=== PATIENT | female | born 1990 | race Caucasian/White ===

== ENCOUNTER 2017-11-18 11:42 | Observation (INO) | payer OTHER ==
[~2017-11-18] VITALS: Ht 170.2 cm; Wt 72.6 kg
[~2017-11-18 11:42] MED LIST: IBUPROFEN800 MG PO; MACROBID100 MG PO; PRENATAL1 TA2 PO; ZOFRAN4 M1 PO; ZOFRAN4 M1 SL
--- NOTE | 2017-11-18 12:02 | ED GENERAL ADULT ---
See Addendum History of Present Illness General Chief Complaint: General Adult Stated Complaint: ABNORMAL CT SCAN Source: patient, PCP Exam Limitations: no limitations Vital Signs & Intake/Output Vital Signs & Intake/Output Vital Signs Date Time Temp Pulse Resp B/P B/P Pulse O2 O2 Flow FiO2 Mean Ox Delivery Rate 11/18 1727 100.0 82 18 119/65 97 Room Air 11/18 1152 99.6 90 16 98 Room Air Allergies Coded Allergies: bismuth subsalicylate (Intermediate, HIVES 11/18/17) calcium carbonate (From TUMS) (Intermediate, HIVES 11/18/17) Penicillins (HIVES 11/18/17) amoxicillin (HIVES 11/18/17) diphenhydramine (From BENADRYL) (HIVES 11/18/17) Uncoded Allergies: PINK DYE (Intermediate, UNKNOWN 05/22/15) Reconcile Medications Norgestimate-Ethinyl Estradiol (Ortho Tri-Cyclen Lo Tablet) [id number] LO TABLET 1 TAB PO QPM BC (Reported) Oxycodone HCl/Acetaminophen (Oxycodone-Acetaminophen 5-325) 5 MG-325 MG TABLET 1 TAB PO Q6-PRN PRN PAIN (Reported) Triage Note: 26F WITH LUQ PAIN X1-2 DAYS THAT NOW RADIATES UP BACK AND INTO LEFT CHEST WALL. DENIES PALPITATIONS OR DIFF BREATHING. O2 SAT 98% RA. SIB DR SAN BECAUSE CT SHOWED ?PNA TO LEFT LUNG BUT D-DIMER CAME BACK ELEVATED AT 2,347. TEMP 99.6. EKG COMPLETED AND #18 EST FOR POSSIBLE CTA. DENIES SMOKING, + CONTROL. DENIES RECENT TRAVEL OR LONG CAR RIDES. DENIES SWELLING OR PAIN TO EXTREMITIES Triage Nurses Notes Reviewed? yes Onset: Abrupt Duration: day(s): (2) Timing: no prior history Injury Environment: home Severity: severe Severity Numbers: 6 Modifying Factors: Improves With: immobilization. Worsens With: movement. Associated Symptoms: chest pain : No Patient currently breastfeeds: No HPI: Patient is a 26-year-old female with no medical history on control pills presenting to the emergency department complaining of sudden onset of left upper quadrant abdominal pain that started at 4 AM 2 days ago. Pain is severe if she is moving or palpating the area. Not so severe if she staying still. She's been taking oxycodone with some relief. No history of blood clots. Denies smoking history. No family history of clotting disorders in the family by her mother is adopted. Denies any shortness of breath. She does report that the left upper quadrant pain radiates into the left side of the chest at times. Denies palpitations. Denies drug use. No fevers or chills. Denies any nausea or vomiting. No change in bowel or bladder habits. She does admit to remote history of mononucleosis when she was in fifth grade. Denies any sore throat or upper respiratory congestion or symptoms. (Adriana Green) Past History Travel History Traveled to [place] past 21 day No Medical History Any Pertinent Medical History? 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 Surgical History Surgical History: non-contributory Psychosocial History What is your primary language Danish Tobacco Use: Never used Family History Hx Contributory? No (Adriana Green) Review of Systems Review of Systems Constitutional: Reports: no symptoms. Comments Review of systems: See HPI, All other systems negative. Constitutional, no chills fever or weight loss HEENT: No visual changes no sore throat no congestion Cardiovascular: No palpitation , orthopnea or ankle swelling Skin, no jaundice no rashes Respiratory: No dyspnea cough sputum or hemoptysis GI: No nausea no vomiting : No dysuria No hematuria Muscle skeletal: no back pain, no neck pain, Neurologic: No numbness no confusion NO HEADACHES Psych: No stress anxiety or depression,. Heme/endocrine: No bruising no bleeding no polyuria or polydipsia Immunology: No splenectomy or history of AIDS (Adriana Green) Physical Exam Physical Exam General Appearance: well developed/nourished, no apparent distress, alert, awake , comfortable Comments: Well-developed well-nourished person in no acute distress HEENT: Atraumatic, normocephalic, normal-appearing posterior pharynx, no enlarged tonsils visualized, uvula midline. Clearing secretions without difficulty. Neck: Normal inspection, no palpable cervical lymphadenopathy. Back: Positive left CVA tenderness on exam. Cardiovascular: Regular rate and rhythms no murmurs rubs or gallops, normal JVP Respiratory: Chest nontender. No respiratory distress.breath sounds clear to auscultation bilaterally Abdomen: Soft, tenderness to palpation in the left upper quadrant with guarding, no rebound tenderness, nondistended, no appreciable organomegaly. Normal bowel sounds. No ascites Rectal: Nontender, brown stool guaiac negative. Extremity: No edema, no calf tenderness to palpation, normal and equal pulses. Neuro: Alert oriented x3, Skin: No appreciable rash on exposed skin, skin is warm and dry. No visualized rashes over the left flank. Psych: Mood and affect is normal, memory and judgment is normal. Core Measures ACS in differential dx? Yes CVA/TIA Diagnosis: No Sepsis Present: No Sepsis Focused Exam Completed? No (Robert SANCHEZ,Adriana) Progress Differential Diagnoses I considered the following diagnoses in my evaluation of the patient: Pulmonary embolus, pneumonia, mononucleosis, viral syndrome, pneumothorax him a muscle strain, shingles Plan of Care: Orders Procedure Date/time Status CBC WITHOUT DIFFERENTIAL 11/19 0600 Active BASIC ELECTROLYTES PLUS BUN&CR 11/19 0600 Active Regular Diet 11/18 D Active PARTIAL THROMBOPLASTIN TIME 11/[address] in observation 11/18 1545 Active Saline Lock 11/18 1532 Active Pathway - chart 11/18 1532 Active House Staff 11/18 1532 Active Code Status 11/18 1532 Active Patient Data 11/18 1452 Active ED Holding Orders 11/18 1450 Active Vital Signs 11/18 1450 Active Code Status 11/18 1450 Complete Intake & Output 11/18 1202 Active MONOSPOT TEST 11/18 1159 Complete TROPONIN LEVEL 11/18 1158 Complete PROTHROMBIN TIME 11/18 1158 Complete HUMAN BETA HCG SCREEN 11/18 1158 Complete D-DIMER 11/18 1158 Complete COMPREHENSIVE METABOLIC PANEL 11/18 1158 Complete CBC WITHOUT DIFFERENTIAL 11/18 1158 Complete EKG 11/18 1151 Active VTE Mechanical Prophylaxis 11/18 UNK Active Vital Signs 11/18 UNK Active Intake & Output 11/18 UNK Active ECHOCARDIOGRAM 11/18 UNK Active Current Medications Sig/Edith Start time Last Medication Dose Stop Time Status Admin Enoxaparin Sodium 100 MG DAILY@1600 11/18 1616 AC 11/18 (Lovenox) 1700 Acetaminophen 650 MG Q6P PRN 11/18 1530 AC (Tylenol) Oxycodone HCl 5 MG Q8P PRN 11/18 1530 AC (Roxicodone) Oxycodone/ 2 TAB Q6P PRN 11/18 1530 AC Acetaminophen (Percocet) Laboratory Tests 11/18/17 1643: APTT > 120 *H 11/18/17 1200: Anion Gap 9, Estimated GFR > 60, BUN/Creatinine Ratio 17.1, Glucose 106 H, Calcium 9.2, Total Bilirubin 0.4, AST 24, ALT 41, Alkaline Phosphatase 78, Troponin I < 0.01, Total Protein 6.7, Albumin 3.8, Globulin 2.9, Albumin/ Globulin Ratio 1.3, Total Beta HCG NEGATIVE, PT 11.4, INR 1.09, D-Dimer High Sensitivty 2924 H, CBC w Diff NO MAN DIFF REQ, RBC 4.21, MCV 84.9, MCH 29.0, RDW 14.4, MPV 8.3, Gran % 51.1, Lymphocytes % 39.3, Monocytes % 8.7, Eosinophils % 0.7, Basophils % 0.2, Absolute Granulocytes 4.1, Absolute Lymphocytes 3.1, Absolute Monocytes 0.7 H, Absolute Eosinophils 0.1, Absolute Basophils 0, PUBS MCHC 34.1, Infectious Breathitt Titer POSITIVE 11/18/2017 12:46:33 PMOn arrival patient declined pain medication. Patient will for CTA due to recent elevated d-dimer and left-sided chest pain. Patient does take daily control. Pain on exam. Vitals are stable. 11/18/2017 2:46:40 PM patient informed of CT results revealing bilateral pulmonary embolus. Patient will be treated with heparin. Admitted for treatment of pulmonary embolus. Guaiac-negative. Patient medicated with IV morphine for pain. Negative troponin. No signs of heart strain on the CTA. Discussed Sandy Bhatia MD, she agrees to plan. Diagnostic Imaging: Viewed by Me: CT Scan. Discussed w/RAD: CT Scan. Initial ED EKG: NSR (Adriana Green) Departure Departure Time of Disposition: 1439 Disposition: STILL A PATIENT Condition: Stable Clinical Impression Primary Impression: Pulmonary embolus Qualifiers: Pulmonary embolism type: other Chronicity: acute Acute cor pulmonale presence: without acute cor pulmonale Qualified Code: I26.99 - Other pulmonary embolism without acute cor pulmonale Referrals: Marie San DO (PCP/Family) Departure Forms: Customer Survey General Discharge Information Admission Note Spoke With: Delores Gregory MD Documentation of Exam: Documentation of any treatments & extenuating circumstances including Concerns Regarding Discharge (functional status, medication knowledge or non-compliance, living conditions, etc.) that warrant an admission rather than observation: Patient will require IV heparinization for bilateral pulmonary embolus, pulmonology and hematology consultation, medication management, discharge at this time would be medically harmful as patient can throW A clot causing a stroke. (Adriana Green) Departure Time of Disposition: 1450 Admission Note Documentation of Exam: Documentation of any treatments & extenuating circumstances including Concerns Regarding Discharge (functional status, medication knowledge or non-compliance, living conditions, etc.) that warrant an admission rather than observation: Observation Note Spoke With: Delores Gregory MD Physician Advisor Notified: TAMMI DUNCAN,TOR [facility] Patient In: Non-ED OBS Care Area Rationale for Observation: My rational for observation is as follows [ Patient will require IV heparinization for bilateral pulmonary embolus, pulmonology and hematology consultation, medication management, discharge at this time would be medically harmful as patient can throW A clot causing a stroke. ]. PA/IT OPERATIONS SPECIALIST Co-Sign Statement Statement: ED Attending supervision documentation- [X] I saw and evaluated the patient. I have also reviewed all the pertinent lab results and diagnostic results. I agree with the findings and the plan of care as documented in the PA's/IT OPERATIONS SPECIALIST's documentation. [X] I have reviewed the ED Record and agree with the PA's/IT OPERATIONS SPECIALIST's documentation. [] Additions or exceptions (if any) to the PAs/IT OPERATIONS SPECIALIST's note and plan are summarized below: [] (Sandy Bhatia MD) Critical Care Note Critical Care Note Critical Care Time: 30-74 min (Adriana Green)
[2017-11-18] MEDS ORDERED: ORTHO TRI-CYCL1 EAC1 PO (12:08)
[2017-11-18] MEDS ORDERED: OXYCODONE-ACET1 EACH PO (12:08)
[2017-11-18 12:26] LABS: ABSOLUTE BASOPHIL COUNT 0 /CUMM (0.0-0.2); ABSOLUTE EOSINOPHIL COUNT 0.1 /CUMM (0.0-0.7); ABSOLUTE GRANULOCYTE CT 4.1 /CUMM (1.4-6.5); ABSOLUTE LYMPH COUNT 3.1 /CUMM (1.2-3.4); ABSOLUTE MONOCYTE COUNT 0.7 /CUMM (0.10-0.60); BASOPHIL % 0.2 % (0.0-2.0); EOSINOPHIL % 0.7 % (0-5); GRANULOCYTE % 51.1 % (42.2-75.2); HEMATOCRIT 35.7 % (37-47); MEAN CORPUSCULAR HGB CONC 34.1 G/DL (33.0-37.0); MEAN CORPUSCULAR VOLUME 84.9 FL (81.0-99.0); MEAN PLATELET VOLUME 8.3 FL (7.4-10.4); PLATELET COUNT 225 /CUMM (130-400); PT 11.4 SEC (9.4-12.5); RBC DISTRIBUTION WIDTH 14.4 % (11.5-14.5); RED BLOOD CELL CT 4.21 /CUMM (4.20-5.40)
--- NOTE | 2017-11-18 14:20 | CT SCAN REPORT ---
EXAMINATION: CT ANGIOGRAM OF THE CHEST WITH CONTRAST (CT PULMONARY ANGIOGRAM FOR PE) CLINICAL INFORMATION: Left-sided chest/rib pain. Evaluate for pulmonary embolism. COMPARISON: Abdomen CT from 11/18/2017. TECHNIQUE: Prior to contrast administration, noncontrast localization images were obtained. Subsequently, multidetector volumetric imaging was performed from the thoracic inlet to below the diaphragms following the administration of 80 mL Optiray 350 intravenous contrast. No contrast reaction reported. Sagittal, coronal, and MIP oblique sagittal reformatted images were obtained on the CT workstation, uploaded to PACS, and reviewed. Total exam dose-length product 251 mGy-cm FINDINGS: QUALITY OF STUDY/CONTRAST BOLUS: Satisfactory. PULMONARY ARTERIES: Pulmonary arteries are normal in size. Nonocclusive embolism of the right pulmonary artery extends into the proximal branches to the medial and lateral segments of the middle lobe, into the interlobar artery and into the segmental branches of the right lower lobe. An embolism of the left lower lobe pulmonary artery extends into the segmental branches. THORACIC AORTA: Normal. LUNGS AND PLEURA: Trachea and central airways are widely patent and normal in caliber. There is mild patchy groundglass opacity in the posteromedial left lower lobe. This could represent minimal peripheral hemorrhage, inflammation and/or atelectasis in this patient with emboli to the left lower lobe. MEDIASTINUM: The heart size is normal. No pericardial effusion. No evidence of septal bowing or right heart strain. The esophagus is unremarkable. The visualized portion of the thyroid gland is normal. LYMPHATICS: No axillary or internal mammary lymphadenopathy. No pathologic sized mediastinal or hilar lymph nodes. UPPER ABDOMEN: For abdominal findings, please refer to the abdomen and pelvis CT report from 11/18/2017. Again noted is an enlarged spleen and posterior splenic cysts. Adrenal glands are normal. No reflux of contrast into the hepatic veins to suggest elevated right heart pressures. OSSEOUS STRUCTURES: No acute or suspicious osseous abnormality. IMPRESSION: Acute bilateral pulmonary emboli, as noted above, without evidence of heart strain. The critical test result was discussed with Adriana Jones of the Emergency Room at 2:15 PM on 11/18/2017 and it was ascertained that the content and the importance of the findings was understood at the time of the direct communication.
--- NOTE | 2017-11-18 15:40 | History & Physical ---
Giovanny Soares 11/18/17 1540: General Information and HPI MD Statement: I have seen and personally examined MAEVE MCARTHUR and documented this H&P. The patient is a 26 year old F who presented with a patient stated chief complaint of [ABD pain]. Source of Information: patient, old records Exam Limitations: no limitations History of Present Illness: This is a 26-year-old female past medical history of left renal stone nonobstructive, history of breast tissue removal consistent with benign cystic fibrous tissue, on oral contraceptive pill otherwise he is not on any prescribed medication. Patient stated that in the middle the night she started to experience left side abdominal pain, start sudden, sharp, 10 out of 10 severity, radiating to her anterior shoulder, increased with movement, not associated with any other symptoms due to this symptom patient went to her primary care doctor who sent her to the hospital to get abdomen and pelvis CT scan to rule out any renal stone, due to the finding of small area of patchy ground glass opacity questionable pneumonia was a concern also the CAT scan showed mild splenomegaly with associated splenic cyst. Patient had elevated d-dimer and because of that CTA was ordered to rule out any pulmonary embolism, the CTA came back with bilateral none occlusive PE. The patient is denying any shortness of breath, heart racing, fever, chills, cough, sick contact, nausea, vomiting, diarrhea, constipation, headache, hematuria, dysuria, increased frequency, recent travel, history of malignancy, history of blood coagulopathy, lower extremity edema, tenderness or redness. Patient reports she pass left nonobstructive renal stone 4 weeks ago, she states she was on Percocet for that and she was following with her OR RN. The ED patient was started on heparin drip. Allergies/Medications Allergies: Coded Allergies: bismuth subsalicylate (Intermediate, HIVES 11/18/17) calcium carbonate (From TUMS) (Intermediate, HIVES 11/18/17) Penicillins (HIVES 11/18/17) amoxicillin (HIVES 11/18/17) diphenhydramine (From BENADRYL) (HIVES 11/18/17) Uncoded Allergies: PINK DYE (Intermediate, UNKNOWN 05/22/15) Home Med list Norgestimate-Ethinyl Estradiol (Ortho Tri-Cyclen Lo Tablet) [id number] LO TABLET 1 TAB PO QPM BC (Reported) Oxycodone HCl/Acetaminophen (Oxycodone-Acetaminophen 5-325) 5 MG-325 MG TABLET 1 TAB PO Q6-PRN PRN PAIN (Reported) Past History Travel History Traveled to [place] past 21 day No Medical History Neurological: NONE EENT: tonsil infections Cardiovascular: NONE Respiratory: bronchitis Gastrointestinal: GERD Hepatic: NONE Renal: NONE Musculoskeletal: NONE Psychiatric: NONE Endocrine: NONE Blood Disorders: NONE Cancer(s): NONE HOME CARE ASSISTANT/Reproductive: 25 WEEK iup BY ULTRASOUND FROM 2 DAYS AGO. Surgical History Surgical History: non-contributory Past Family/Social History Family History Relations & Conditions if any MOTHER Psychosocial History Smoking Status: Never Smoked ETOH Use: occasional use Illicit Drug Use: denies illicit drug use Functional Ability ADLs Independent: dressing, eating, toileting, bathing. Ambulation: independent IADLs Independent: shopping, housework, finances, food prep, telephone, transportation , medication admin. Review of Systems Review of Systems Constitutional: Reports: see HPI. Cardiovascular: Reports: see HPI. Respiratory: Reports: see HPI. GI: Reports: see HPI. Genitourinary: Reports: see HPI. Exam & Diagnostic Data Last 24 Hrs of Vital Signs/I&O Vital Signs Date Time Temp Pulse Resp B/P B/P Pulse O2 O2 Flow FiO2 Mean Ox Delivery Rate 11/18 1152 99.6 90 16 98 Room Air Intake & Output 11/18 1600 11/18 0800 11/18 0000 Intake Total Output Total Balance Patient 160 lb Weight Weight Reported by Patient Measurement Method Physical Exam General Appearance Alert, Oriented X3, Cooperative, No Acute Distress Skin Temp/Moisture Exam: Warm/Dry HEENT Atraumatic, PERRLA, EOMI Neck Supple Cardiovascular Regular Rate, Normal S1, Normal S2 Lungs Clear to Auscultation, Normal Air Movement Abdomen Normal Bowel Sounds, Soft, mild tenderness left upper quadrant Extremities No Cyanosis, No Edema, Normal Pulses Last 24 Hrs of Labs/Ollie: Laboratory Tests 11/18/17 1643: APTT Pending 11/18/17 1200: Anion Gap 9, Estimated GFR > 60, BUN/Creatinine Ratio 17.1, Glucose 106 H, Calcium 9.2, Total Bilirubin 0.4, AST 24, ALT 41, Alkaline Phosphatase 78, Troponin I < 0.01, Total Protein 6.7, Albumin 3.8, Globulin 2.9, Albumin/ Globulin Ratio 1.3, Total Beta HCG NEGATIVE, PT 11.4, INR 1.09, D-Dimer High Sensitivty 2924 H, CBC w Diff NO MAN DIFF REQ, RBC 4.21, MCV 84.9, MCH 29.0, RDW 14.4, MPV 8.3, Gran % 51.1, Lymphocytes % 39.3, Monocytes % 8.7, Eosinophils % 0.7, Basophils % 0.2, Absolute Granulocytes 4.1, Absolute Lymphocytes 3.1, Absolute Monocytes 0.7 H, Absolute Eosinophils 0.1, Absolute Basophils 0, PUBS MCHC 34.1, Infectious [place] Titer POSITIVE Diagnostic Data EKG Results Normal CXR Results EXAM TYPE: CAT - CTA CHEST-PULMONARY EMBOLISM EXAMINATION: CT ANGIOGRAM OF THE CHEST WITH CONTRAST (CT PULMONARY ANGIOGRAM FOR PE) CLINICAL INFORMATION: Left-sided chest/rib pain. Evaluate for pulmonary embolism. COMPARISON: Abdomen CT from 11/18/2017. TECHNIQUE: Prior to contrast administration, noncontrast localization images were obtained. Subsequently, multidetector volumetric imaging was performed from the thoracic inlet to below the diaphragms following the administration of 80 mL Optiray 350 intravenous contrast. No contrast reaction reported. Sagittal, coronal, and MIP oblique sagittal reformatted images were obtained on the CT workstation, uploaded to PACS, and reviewed. Total exam dose-length product 251 mGy-cm FINDINGS: QUALITY OF STUDY/CONTRAST BOLUS: Satisfactory. PULMONARY ARTERIES: Pulmonary arteries are normal in size. Nonocclusive embolism of the right pulmonary artery extends into the proximal branches to the medial and lateral segments of the middle lobe, into the interlobar artery and into the segmental branches of the right lower lobe. An embolism of the left lower lobe pulmonary artery extends into the segmental branches. THORACIC AORTA: Normal. LUNGS AND PLEURA: Trachea and central airways are widely patent and normal in caliber. There is mild patchy groundglass opacity in the posteromedial left lower lobe. This could represent minimal peripheral hemorrhage, inflammation and/or atelectasis in this patient with emboli to the left lower lobe. MEDIASTINUM: The heart size is normal. No pericardial effusion. No evidence of septal bowing or right heart strain. The esophagus is unremarkable. The visualized portion of the thyroid gland is normal. LYMPHATICS: No axillary or internal mammary lymphadenopathy. No pathologic sized mediastinal or hilar lymph nodes. UPPER ABDOMEN: For abdominal findings, please refer to the abdomen and pelvis CT report from 11/18/2017. Again noted is an enlarged spleen and posterior splenic cysts. Adrenal glands are normal. No reflux of contrast into the hepatic veins to suggest elevated right heart pressures. OSSEOUS STRUCTURES: No acute or suspicious osseous abnormality. IMPRESSION: Acute bilateral pulmonary emboli, as noted above, without evidence of heart strain. EXAMINATION: CT ABDOMEN AND PELVIS WITH CONTRAST CLINICAL INFORMATION: Severe pain in left upper quadrant. COMPARISON: None TECHNIQUE: Multidetector volumetric imaging was performed of the abdomen and pelvis following IV administration of 93 mL of Optiray 320 intravenous contrast. Sagittal and coronal reformatted images were obtained on the technologist's workstation. DLP: 745 mGy-cm FINDINGS: LUNG BASES: Within the periphery of the posterior medial left lower lobe, there is an area of patchy groundglass opacity; this is nonspecific and could represent pneumonia or mild atelectasis. No pleural effusion. LIVER, GALLBLADDER, AND BILIARY TREE: Liver has normal contour and attenuation. No focal hepatic lesion or intrahepatic bile duct dilatation. The portal and hepatic veins are patent. Gallbladder is unremarkable. PANCREAS: Unremarkable. SPLEEN: Prominent spleen measures up to 13.6 cm AP and 11.5 cm craniocaudal. There is a 2.5 x 3.2 cm cyst of the posterior spleen with an adjacent 0.5 cm rim calcified cyst. Otherwise, spleen is unremarkable. ADRENAL GLANDS: Unremarkable. KIDNEYS AND URETERS: The kidneys are normal in size, shape, and attenuation. No hydronephrosis, hydroureter, or calculi seen. No perinephric stranding. BLADDER: Unremarkable. GASTROINTESTINAL TRACT: Stomach is underdistended. Bowel loops are normal in caliber. No evidence of inflammation or obstruction along the gastrointestinal tract. No ascites or pneumoperitoneum. ABDOMINAL WALL: No significant findings. LYMPH NODES: Normal. VASCULAR: Abdominal aorta is normal in caliber and the celiac trunk, SMA, SOHA and renal arteries are widely patent. Inferior vena cava is normal. PELVIC VISCERA: The anteflexed uterus is normal in size. No evidence of uterine or adnexal mass. Small, physiologic amount of free fluid is seen within the pelvic cul-de-sac. OSSEOUS STRUCTURES: Unremarkable. IMPRESSION: 1. Within the posteromedial left lower lobe, there is a small area of patchy ground glass opacity; this could represent pneumonia, if in the right clinical context. 2. Mild splenomegaly and posterior splenic cysts. 3. No acute findings along the gastrointestinal tract. Assessment/Plan Assessment: This is a 26-year-old female past medical history of left renal stone nonobstructive, history of breast tissue removal consistent with benign cystic fibrous tissue, on oral contraceptive pill otherwise he is not on any prescribed medication. Presented with abdominal pain. Assessment: -Bilateral pulmonary PE: Provoked versus unprovoked. It most likely on the unprovoked PE, least likely to be secondary to oral contraceptive pill as she is not currently a smoker and she been using his oral contraceptive pill in the past. She will need hypercoagulable workup and hematology follow up as an outpatient. -Abdominal pain: Most likely secondary to the mild splenomegaly and a splenic cyst, the patient has positive Monospot, for now she doesn't need any treatment. No for renal stone on the CT Abd/pelvic. Plan: -Admit patient to telemetry floor -Vitals every shift -Patient was started on heparin drip, will change to Lovenox subcutaneous 100 mg daily -Echocardiogram to assess for right heart strain. -Bilateral lower extremity Doppler to rule out any DVT -Discussed with the patient regarding the choice of the new oral anticoagulation Xarelto versus Eliquis. -Regular diet -Pain pathway -DVT prophylaxis: on Lovenox -Full code As Ranked By This Provider Problem List: 1. Pulmonary embolus Qualifiers Pulmonary embolism type: other Chronicity: acute Acute cor pulmonale presence: without acute cor pulmonale Qualified Code: I26.99 - Other pulmonary embolism without acute cor pulmonale Core Measures/Misc (08/17) Acute Coronary Syndrome ACS Diagnosis: No Congestive Heart Failure Congestive Heart Failure Diagnosis No Cerebrovascular Accident CVA/TIA Diagnosis: No VTE (View Protocol) VTE Risk Factors Acute Medical Illness No Mechanical VTE Prophylaxis d/t N/A MechProphylax Ordered No VTE Pharm Prophylaxis d/t NA PharmProphylax ordered Sepsis (View protocol) Sepsis Present: No Deloers Gregory MD 11/19/17 0951: Attending MD Review Statement Attending Statement Attending MD Statement: examined this patient, discuss w/resident/PA/RECRUITING SPECIALIST, agreed w/resident/PA/RECRUITING SPECIALIST, reviewed EMR data (avail) Attending Assessment/Plan: 26F no PMH on OCPs presenting with shortness of breath and pleuritic chest pain, found to have bilateral acute PE. Started on Lovenox. Pain is controlled, not hypoxic, hemodynamically stable. Found to have mild splenomegaly on CT, Monospot was positive, for what that's worth. Plan: Will bring in as obserbation, Echo, Lovenox with plan to switch to Eliquis, likely discharge tomorrow.
--- NOTE | 2017-11-18 17:52 | ULTRASOUND REPORT ---
EXAMINATION: US TRIPLEX OF LOWER EXTREMITIES, BILATERAL CLINICAL INFORMATION: Acute bilateral PTE. COMPARISON: None available. TECHNIQUE: Color-flow triplex imaging with spectral analysis and compression Doppler were performed on the lower extremities. FINDINGS: Respiratory variation, normal compression and augmented flow are noted throughout the lower extremities. The visualized common femoral vein, superficial femoral vein, profunda femoral vein, popliteal vein and midcalf peroneal and posterior tibial venous segments show no evidence of deep venous thrombosis. There is no Stratton's cyst. IMPRESSION: Normal triplex scan without evidence of deep venous thrombosis involving the lower extremities.
[2017-11-18 18:03] LABS: PTT > 120 SEC (25-37)
[2017-11-18 22:33] VITALS: BP 102/62
[2017-11-19 07:36] VITALS: BP 102/58
[2017-11-19 08:02] LABS: ABSOLUTE BASOPHIL COUNT 0 /CUMM (0.0-0.2); ABSOLUTE EOSINOPHIL COUNT 0.1 /CUMM (0.0-0.7); ABSOLUTE GRANULOCYTE CT 2.8 /CUMM (1.4-6.5); ABSOLUTE LYMPH COUNT 2.6 /CUMM (1.2-3.4); ABSOLUTE MONOCYTE COUNT 0.6 /CUMM (0.10-0.60); BASOPHIL % 0.3 % (0.0-2.0); EOSINOPHIL % 1.5 % (0-5); GRANULOCYTE % 45.8 % (42.2-75.2); HEMATOCRIT 33.5 % (37-47); MEAN CORPUSCULAR HGB 28.8 PG (27.0-31.0); MEAN CORPUSCULAR VOLUME 84.7 FL (81.0-99.0); MEAN PLATELET VOLUME 8.2 FL (7.4-10.4); PLATELET COUNT 185 /CUMM (130-400); RBC DISTRIBUTION WIDTH 14.7 % (11.5-14.5); RED BLOOD CELL CT 3.95 /CUMM (4.20-5.40); WHITE BLOOD CELL COUNT 6.1 /CUMM (4.8-10.8)
--- NOTE | 2017-11-19 11:07 | PN-Observation ---
Observation Note Observation Note _ I have personally examined MAEVE MCARTHUR. her disposition is uncertain at this time. Before a determination can be made, she requires continued observation for the following reasons [pulmonary embolism]. Assessment/Plan Assessment: This is a 26-year-old female past medical history of left renal stone nonobstructive, history of breast tissue removal consistent with benign cystic fibrous tissue, on oral contraceptive pill otherwise he is not on any prescribed medication. Presented with abdominal pain. -Bilateral pulmonary PE: likely 2/2 to oral contraceptive pill * Continue observation on telemetry floor * CTA positive for b/l nonocclusive PE * No DVT, ECHO WNL * Initially was started on IV heparin drip now switched to 80 mg BID * Considering switching to oral anticoagulant Xarelto versus Eliquis. 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 No renal stone on the CT Abd/pelvic. * Pain pathway tylenol 650mg mild pain, percocet moderate and roxicodone for severe #Regular diet #DVT prophylaxis: on Lovenox #Full code Problem List: 1. Pulmonary embolus Qualifiers Pulmonary embolism type: other Chronicity: acute Acute cor pulmonale presence: without acute cor pulmonale Qualified Code: I26.99 - Other pulmonary embolism without acute cor pulmonale Subjective Follow-up For: PE Spleenomegly Subjective: Seen and examined. Complains of nausea likely 2/2 to opoid pain medications. 10/ 10 sharp left sided flank pain Review of Systems Constitutional: Reports: see HPI. Objective Last 24 Hrs of Vital Signs/I&O Vital Signs Date Time Temp Pulse Resp B/P B/P Pulse O2 O2 Flow FiO2 Mean Ox Delivery Rate 11/19 1402 98.9 87 20 90/60 98 Room Air 11/19 0900 Room Air 11/19 0736 98.4 82 20 102/58 97 Room Air 11/18 2233 99.2 89 20 102/62 97 Room Air 11/18 2103 98.9 98 20 121/65 100 Room Air 11/18 1727 100.0 82 18 119/65 97 Room Air 11/18 1553 Room Air Intake & Output 12/20 1600 11/19 0800 11/19 0000 Intake Total Output Total Balance Patient 160 lb Weight Physical Exam General Appearance: Alert, Oriented X3 Other Physical Findings: Cardiovascular Regular Rate, Normal S1, Normal S2 Lungs Clear to Auscultation, Normal Air Movement Abdomen Normal Bowel Sounds, Soft, mild tenderness left upper quadrant Extremities No Cyanosis, No Edema, Normal Pulses Current Medications: Current Medications Sig/Edith Start time Last Medication Dose Route Stop Time Status Admin Acetaminophen 1,000 MG ONCE ONE 11/19 1000 DC 11/19 N/A 1 UNIT IV 11/19 1014 1413 Acetaminophen 650 MG Q6P PRN 11/18 1530 AC PO Enoxaparin Sodium 80 MG BID 11/19 1002 AC 11/19 SC 1416 Enoxaparin Sodium 100 MG DAILY@1600 11/18 1616 DC 11/18 SC 1700 Heparin Sodium 0 .STK-MED ONE 11/18 1448 DC (Porcine) .ROUTE Heparin Sodium 25,000 UNIT Q24H 11/18 1430 DC 11/18 (Porcine) IV 1447 Sodium Chloride 500 ML Hydromorphone HCl 0.2 MG ONCE ONE 11/18 2230 DC 11/18 IV 11/18 2231 2253 Hydromorphone HCl 0 .STK-MED ONE 11/18 1604 DC .ROUTE Hydromorphone HCl 1 MG ONCE ONE 11/18 1530 DC 11/18 IV 11/18 1531 1600 Ondansetron HCl 4 MG ONCE ONE 11/19 0945 DC 11/19 PO 11/19 0946 1413 Oxycodone HCl 5 MG Q8P PRN 11/18 1530 AC PO Oxycodone/ 0 .STK-MED ONE 11/18 1927 DC Acetaminophen PO Oxycodone/ 2 TAB Q6P PRN 11/18 1530 AC 11/19 Acetaminophen PO 1016 Last 24 Hrs of Labs/Mics: Laboratory Tests 11/19/17 1115: Urine Color TEO, Urine Clarity CLEAR, Urine pH 6.0, Ur Specific [place] 1.020, Urine Protein NEG, Urine Ketones NEG, Urine Nitrite NEG, Urine Bilirubin NEG, Urine Urobilinogen 1.0, Ur Leukocyte Esterase NEG, Ur Microscopic SEDIMENT EXAMINED, Urine RBC 1-3, Urine WBC 1-3 H, Ur Epithelial Cells FEW, Urine Bacteria FEW H, Urine Hemoglobin SMALL H, Urine Glucose NEG 11/19/17 0714: Anion Gap 8, Estimated GFR > 60, BUN/Creatinine Ratio 12.9, CBC w Diff NO MAN DIFF REQ, RBC 3.95 L, MCV 84.7, MCH 28.8, RDW 14.7 H, MPV 8.2, Gran % 45.8, Lymphocytes % 42.9, Monocytes % 9.5 H, Eosinophils % 1.5, Basophils % 0.3, Absolute Granulocytes 2.8, Absolute Lymphocytes 2.6, Absolute Monocytes 0.6, Absolute Eosinophils 0.1, Absolute Basophils 0, PUBS MCHC 34.0 11/18/17 1643: APTT > 120 *H
--- NOTE | 2017-11-19 11:47 | ECHOCARDIOGRAM REPORT ---
MAEVE MCARTHUR Age: 26 : 1990 Gender: F Exam Date: 11/19/2017 09:06 Exam Location: 1 [address] Ht (in): 67 Wt (lb): 160 BSA: 1.86 BP: 102 / 58 Ordering Physician: Giovanny Soares MD Referring Physician: Giovanny Soares MD Technologist: Saravanan Strodu [facility] Room Number: 174-1 Indications: ACUTE PULMONARY EMBOLISM Rhythm: Technical Quality: suboptimal, contrast used FINDINGS Left Ventricle Normal LV chamber size, wall thickness and systolic function. The estimated LVEF is 55-60%. There are no focal wall motion abnormalities. Right Ventricle Normal right ventricular size, structure and function. Right Atrium Normal appearing right atrium Left Atrium Normal appearing left atrium Mitral Valve Grossly normal appearing mitral valvular leaflets, structure and function. There is trace to mild mitral regurgitation. Aortic Valve Normal appearing, trileaflet aortic valve with normal structure and function Tricuspid Valve Normal appearing tricuspid valvular structure and function. There is trace to mild tricuspid regurgitation. Pulmonic Valve Grossly normal appearing pulmonic valvular leaflet structure and function Pericardium There is no pericardial effusion Great Vessels Normal appearing great vessels CONCLUSIONS Normal LV chamber size, wall thickness and systolic function. The estimated LVEF is 55-60%. There are no focal wall motion abnormalities. Normal right ventricular size, structure and function. Grossly normal appearing mitral valvular leaflets, structure and function. There is trace to mild mitral regurgitation. Normal appearing tricuspid valvular structure and function. There is trace to mild tricuspid regurgitation. Ramesh Ellington M.D. (Electronically Signed) Final Date: 19 November 2017 11:46 MEASUREMENTS (Male / Female) Normal Values 2D ECHO LV Diastolic Diameter PLAX 4.7 cm 4.2 - 5.9 / 3.9 - 5.3 cm LV Systolic Diameter PLAX 2.9 cm 2.1 - 4.0 cm LV Fractional Shortening PLAX 38.3 % 25 - 46 % LV Ejection Fraction 2D Teich 68.5 % IVS Diastolic Thickness 1.0 cm LVPW Diastolic Thickness 0.9 cm LV Relative Wall Thickness 0.4 LVOT Diameter 1.9 cm Aortic Root Diameter 2.7 cm LA Systolic Diameter LX 2.7 cm 3.0 - 4.0 / 2.7 - 3.8 cm LA Volume 34.0 cm 18 - 58 / 22 - 52 cm Ascending Aorta Diameter 2.4 cm DOPPLER AV Peak Velocity 124.0 cm/s AV Peak Gradient 6.2 mmHg AV Mean Velocity 85.8 cm/s AV Mean Gradient 3.0 mmHg AV Velocity Time Integral 26.8 cm LVOT Peak Velocity 113.0 cm/s LVOT Peak Gradient 5.1 mmHg LVOT Mean Velocity 74.6 cm/s LVOT Mean Gradient 3.0 mmHg LVOT Velocity Time Integral 22.3 cm LVOT Stroke Volume 63.2 cm AV Area Cont Eq vti 2.4 cm AV Area Cont Eq pk 2.6 cm MV Peak Velocity 103.0 cm/s MV Peak Gradient 4.2 mmHg MV Mean Velocity 56.4 cm/s MV Mean Gradient 1.0 mmHg Mitral E Point Velocity 105.0 cm/s Mitral A Point Velocity 45.9 cm/s Mitral E to A Ratio 2.3 MV PHT Velocity 106.0 cm/s MV Deceleration [place] 227.0 cm/s MV Pressure Half Time 140.1 ms MV Area PHT 1.6 cm MV Deceleration Time 271.0 ms PV Peak Velocity 68.9 cm/s PV Peak Gradient 1.9 mmHg PV Mean Velocity 51.8 cm/s PV Mean Gradient 1.0 mmHg PV Velocity Time Integral 16.8 cm LV E' Lateral Velocity 19.1 cm/s Mitral E to LV E' Lateral Ratio 5.5 LV E' Septal Velocity 13.5 cm/s Mitral E to LV E' Septal Ratio 7.8
[2017-11-19 14:02] VITALS: BP 90/60
--- NOTE | 2017-11-19 14:17 | PN- Att Addend ---
Attending MD Review Statement Attending Statement Attending MD Statement: examined this patient, discuss w/resident/PA/[employer], agreed w/resident/PA/[employer], reviewed EMR data (avail), discussed w/nursing, discussed w/ case mgmt Attending Assessment/Plan: Laboratory Tests 11/19/17 1115: Urine Color TEO, Urine Clarity CLEAR, Urine pH 6.0, Ur Specific [place] 1.020, Urine Protein NEG, Urine Ketones NEG, Urine Nitrite NEG, Urine Bilirubin NEG, Urine Urobilinogen 1.0, Ur Leukocyte Esterase NEG, Ur Microscopic SEDIMENT EXAMINED, Urine RBC 1-3, Urine WBC 1-3 H, Ur Epithelial Cells FEW, Urine Bacteria FEW H, Urine Hemoglobin SMALL H, Urine Glucose NEG 11/19/17 0714: Anion Gap 8, Estimated GFR > 60, BUN/Creatinine Ratio 12.9, CBC w Diff NO MAN DIFF REQ, RBC 3.95 L, MCV 84.7, MCH 28.8, RDW 14.7 H, MPV 8.2, Gran % 45.8, Lymphocytes % 42.9, Monocytes % 9.5 H, Eosinophils % 1.5, Basophils % 0.3, Absolute Granulocytes 2.8, Absolute Lymphocytes 2.6, Absolute Monocytes 0.6, Absolute Eosinophils 0.1, Absolute Basophils 0, PUBS MCHC 34.0 11/18/17 1643: APTT > 120 *H Vital Signs Date Time Temp Pulse Resp B/P B/P Pulse O2 O2 Flow FiO2 Mean Ox Delivery Rate 11/19 1402 98.9 87 20 90/60 98 Room Air 11/19 0900 Room Air 11/19 0736 98.4 82 20 102/58 97 Room Air 11/18 2233 99.2 89 20 102/62 97 Room Air 11/18 2103 98.9 98 20 121/65 100 Room Air 11/18 1727 100.0 82 18 119/65 97 Room Air 11/18 1553 Room Air Pt seen and examined. Pulmonary embolism B/l- d/w pt anticoagulation with coumadin vs newer agents. explained the risks and benefits of various agents. pt is leaning more towards the newer agents. will d/w case management to see if her insurance will apporve it prior to dc tomorrow. still having left flank pain- likely related to splenomegaly and having referred to pain going to the left shoulder area.
[2017-11-19 22:11] VITALS: BP 98/60
[2017-11-20 06:23] VITALS: BP 94/52
--- NOTE | 2017-11-20 08:02 | PN-Observation ---
See Addendum Observation Note Observation Note _ I have personally examined MAEVE MCARTHUR. her disposition is uncertain at this time. Before a determination can be made, she requires continued observation for the following reasons [Bilateral pulmonary PE: likely 2/2 to oral contraceptive pill]. Assessment/Plan Assessment: This is a 26-year-old female past medical history of left renal stone nonobstructive, history of breast tissue removal consistent with benign cystic fibrous tissue, on oral contraceptive pill otherwise he is not on any prescribed medication. Presented with abdominal pain. -Bilateral pulmonary PE: likely 2/2 to oral contraceptive pill * CTA positive for b/l nonocclusive PE * No DVT, ECHO WNL * Initially was started on IV heparin drip then switched to 80 mg BID * Being d/c on Eliquis patient to take 10 mg twice a day for 1 week and 5 mg twice a day for next 3 months * Patient consult to follow-up with PCP patient counseled to avoid and avoidance -Abdominal pain: Most likely secondary to the mild splenomegaly and a splenic cyst, the patient has positive Monospot, for now she doesn't need any treatment. No renal stone on the CT Abd/pelvic. * Pain pathway tylenol 650mg mild pain, percocet moderate and roxicodone for severe #Regular diet #DVT prophylaxis: on Lovenox #Full code Problem List: 1. Pulmonary embolus Qualifiers Pulmonary embolism type: other Chronicity: acute Acute cor pulmonale presence: without acute cor pulmonale Qualified Code: I26.99 - Other pulmonary embolism without acute cor pulmonale Subjective Follow-up For: Bilateral pulmonary PE: likely 2/2 to oral contraceptive pill Subjective: Seen and examined NO complains stable for d/c Review of Systems Constitutional: Reports: see HPI. Objective Last 24 Hrs of Vital Signs/I&O Vital Signs Date Time Temp Pulse Resp B/P B/P Pulse O2 O2 Flow FiO2 Mean Ox Delivery Rate 11/20 0623 100.1 80 18 94/52 96 Room Air 11/19 2211 98.7 82 18 98/60 97 Room Air Intake & Output 11/20 1600 11/20 0800 11/20 0000 Intake Total 400 Output Total Balance 400 Intake, Oral 400 Physical Exam General Appearance: Alert, Oriented X3, Cooperative Cardiovascular: Normal S1, Normal S2 Lungs: Clear to Auscultation Abdomen: Normal Bowel Sounds
--- NOTE | 2017-11-20 08:02 | PN- Housestaff ---
Assessment/Plan Assessment: This is a 26-year-old female past medical history of left renal stone nonobstructive, history of breast tissue removal consistent with benign cystic fibrous tissue, on oral contraceptive pill otherwise he is not on any prescribed medication. Presented with abdominal pain. -Bilateral pulmonary PE: likely 2/2 to oral contraceptive pill * Continue observation on telemetry floor * CTA positive for b/l nonocclusive PE * No DVT, ECHO WNL * Initially was started on IV heparin drip now switched to 80 mg BID * Considering switching to oral anticoagulant Xarelto versus Eliquis. 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 No renal stone on the CT Abd/pelvic. * Pain pathway tylenol 650mg mild pain, percocet moderate and roxicodone for severe #Regular diet #DVT prophylaxis: on Lovenox #Full code
[2017-11-20 08:22] LABS: ABSOLUTE BASOPHIL COUNT 0 /CUMM (0.0-0.2); ABSOLUTE EOSINOPHIL COUNT 0.1 /CUMM (0.0-0.7); ABSOLUTE GRANULOCYTE CT 2.9 /CUMM (1.4-6.5); ABSOLUTE LYMPH COUNT 2.1 /CUMM (1.2-3.4); ABSOLUTE MONOCYTE COUNT 0.6 /CUMM (0.10-0.60); BASOPHIL % 0.2 % (0.0-2.0); GRANULOCYTE % 50.4 % (42.2-75.2); HEMATOCRIT 33.4 % (37-47); MEAN CORPUSCULAR HGB 28.5 PG (27.0-31.0); MEAN CORPUSCULAR HGB CONC 33.7 G/DL (33.0-37.0); MEAN CORPUSCULAR VOLUME 84.6 FL (81.0-99.0); MEAN PLATELET VOLUME 8.8 FL (7.4-10.4); PLATELET COUNT 212 /CUMM (130-400); RBC DISTRIBUTION WIDTH 13.9 % (11.5-14.5); RED BLOOD CELL CT 3.94 /CUMM (4.20-5.40); WHITE BLOOD CELL COUNT 5.7 /CUMM (4.8-10.8)
[2017-11-20] MEDS ORDERED: ELIQUIS5 M1 PO ×2 (08:43→11:21)
--- NOTE | 2017-11-20 08:49 | Patient Discharge Instructions ---
Discharge Instructions General Discharge Information You were seen/treated for: Pulmonary embolism Watch for these problems: Fever, palpitations, shortness of breath, pain with deep inhalation. Special Instructions: Please follow-up with PCP within one week of discharge Please take Eliquis 2 tablets twice a day form 11/20 to 11/26 Then take Eliquis 1 tablet twice a day from 11/27 to 01/12 You need to be on anticoagulation for at least 3 months Please avoid while on Eliquis. 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 NO NSAIDS (Advil and Aleeve) Diet Continue normal diet: Yes Activity Activity Self Limited: Yes Acute Coronary Syndrome Inclusion Criteria At DC or during hospital stay patient has or had the following: ACS DIAGNOSIS No Discharge Core Measures Meds if any: Prescribed or Continued at Discharge Meds if any: NOT Prescribed or Continued at Discharge Congestive Heart Failure Inclusion Criteria At DC or during hospital stay patient has or had the following: CHF DIAGNOSIS No Discharge Core Measures Meds if any: Prescribed or Continued at Discharge Meds if any: NOT Prescribed or Continued at Discharge Cerebrovascular accident Inclusion Criteria At DC or during hospital stay patient has or had the following: CVA/TIA Diagnosis No Discharge Core Measures Meds if any: Prescribed or Continued at Discharge Meds if any: NOT Prescribed or Continued at Discharge Venous thromboembolism Inclusion Criteria VTE Diagnosis Yes VTE Type Pulmonary Embolism VTE Confirmed by (Test) CT CHEST ANGIOGRAM Discharge Core Measures - Per Current guidelines, there needs to be overlap - treatment for the first 5 days of Warfarin therapy. - If discharged on Warfarin prior to 5 days of - overlap therapy, the patient will need to be - assessed for post discharge needs including - *Post discharge parental anticoagulation - *Warfarin and/or parental anticoagulation education - *Follow up date to check INR post discharge At least 5 days overlap therapy as Inpatient No Why was Parental Med stopped Other Anticoagulant given Meds if any: Prescribed or Continued at Discharge Warfarin No Note: Overlap Therapy is Warfarin and Anticoagulant Meds if any: NOT Prescribed or Continued at Discharge
[2017-11-20] MEDS ORDERED: PERCOCET 5-3251 EACH PO ×2 (11:20→11:22)
== END 2017-11-20 12:15 ==
LOC: ERH 11:42 → ERHI 14:50 → 1NO 14:50 → ERHI 14:50 → EDBEDREQ 15:51 → ERHI 16:00 → ENRESERV 20:02 → ENTRNSPT 20:56 → 1NO 21:18 → CMPTRNSPT 21:31 → ENPENDDIS 11-20 10:26 → 1NO 11-20 12:15
PROVIDERS: Emergency Medicine; Internal Medicine Adolescent Medicine; Internal Medicine Hematology & Oncology; Physician Assistant
DX: I26.99 Other pulmonary embolism without acute cor pulmonale (principal); R07.81 Pleurodynia; K21.9 Gastro-esophageal reflux disease without esophagitis; R10.9 Unspecified abdominal pain; D73.4 Cyst of spleen; B27.90 Infectious mononucleosis, unspecified without complication; Z30.41 Encounter for surveillance of contraceptive pills; R06.02 Shortness of breath
CPT/HCPCS: 36415; 81001; 82436; 93005; 93010; 93970; 96372; 96374; 96375; 96376; 99291; C8929; G0378; J0131; J1644; J1650; J2405; J3101; Q9957